=== PATIENT | female | born 1975 | race Caucasian/White ===

== ENCOUNTER 2020-08-01 19:49 | Emergency (ER) | payer OTHER, SELFPAY ==
--- NOTE | ~2020-08-01 | XR_ITS ---
EXAMINATION: XR chest 2V DATE: 08/01/2020 20:18 INDICATION: Chest pain TECHNIQUE: PA and lateral views of the chest were obtained. COMPARISON: Chest radiograph dated 03/19/2009 FINDINGS: The lungs remain clear with no focal airspace opacities, pulmonary edema, pleural effusion or pneumot horax. The cardiomediastinal silhouette is normal. Bilateral breast implants. C6-C7 anterior spinal f usion with plate and screw fixation. IMPRESSION: 1. No acute cardiopulmonary disease. Reviewed, dictated and finalized at location A.
[2020-08-01 19:51] VITALS: BP 126/89; PULSE 97; RESP 20; TEMP 36.5; O2SAT 99
--- NOTE | 2020-08-01 19:51 | ECG_ITS ---
Measurements Intervals [place] Rate: 95 P: 67 MN: 168 QRS: 28 QRSD: 85 T: 18 QT: 334 QTc: 421 Interpretive Statements SINUS RHYTHM NONSPECIFIC T-WAVE ABNORMALITY- INFERIOR LEADS BASELINE ARTIFACT- I, II, AVR, AVL BORDERLINE ECG Electronically Signed On 08-02-2020 5:45:37 CDT by Felix Navarro D.O.
--- NOTE | 2020-08-01 20:08 | ED.GENADULT ---
HPI - General Adult General Chief complaint: Chest Pain Stated complaint: chest pain Time Seen by Provider: 08/01/20 19:57 History of Present Illness HPI narrative: Patient 44-year-old female who presents the emergency department with chief complaint of chest pain. Patient reports that she was eating and suddenly had discomfort in the middle portion of her chest behind her sternum patient states it was squeezing and the patient states that she felt somewhat anxious on this. Patient reports he has history of panic but this felt different from her typical panic attack patient denies history of hypertension denies smoking denies history of cardiac disease. Patient states that pain is improved spontaneously and is not worsened by anything. Related Data Home Medications Medication Instructions Recorded Confirmed bupropion HCl mg PO 08/01/20 dextroamphetamine-amphetamine 08/01/20 estrogens-methyltestosterone tablet 08/01/20 lansoprazole 08/01/20 levothyroxine [Synthroid] 08/01/20 nystatin 08/01/20 spironolactone 08/01/20 tolterodine mg PO 08/01/20 Allergies Allergy/AdvReac Type Severity Reaction Status Date / Time meloxicam Allergy Severe CHEST Verified 08/01/20 20:00 PAIN, SOB, DOUBLE VISION morphine Allergy Severe Anaphylaxis Verified 08/01/20 20:00 Sulfa (Sulfonamide Allergy Mild Other Verified 08/01/20 20:00 Antibiotics) nifedipine Allergy Unknown Other Verified 08/01/20 20:00 nitrofurantoin Allergy Unknown Other Verified 08/01/20 20:00 terbutaline Allergy Unknown RASH DOWN Verified 08/01/20 20:00 BOTH LEGS NITRATE Allergy Unknown Other Uncoded 08/01/20 20:00 PROPOXYPHENE NAPSYLATE Allergy Unknown Other Uncoded 08/01/20 20:00 TERBUTALINE SULFATE Allergy Unknown Other Uncoded 08/01/20 20:00 Review of Systems Review of Systems: Narrative: A 10 system review of systems was completed on the patient and is negative except for what is stated in the HPI. Nursing and ancillary documentation was reviewed. PMFSH Comments Past medical history significant for interstitial cystitis generalized anxiety disorder panic attacks Surgical history the patient's had a hysterectomy tubal ligation. Social history the patient denies smoking Exam Narrative: Exam Narrative: GENERAL: Well-appearing, well-nourished, and in no acute distress. HEAD: Normocephalic, atraumatic. EYES: PERRLA and EOMI. ENT: Nares clear, no rhinorrhea or epistaxis. Mucous membranes moist. NECK: Supple. CHEST: Clear to auscultation. No respiratory distress. HEART: Regular rate and rhythm. No murmur heard. Normal peripheral pulses. ABDOMEN: Soft, nontender, nondistended, normal active bowel sounds. EXTREMITIES: Normal range of motion. No edema. SKIN: Warm, dry, no rash. NEURO: No focal deficits. Alert and oriented x3. PSYCH: Normal mood and affect. Course Course Emergency Course: Rhythm rate of [address] or ST depression Vital Signs Vital signs: Vital Signs Temperature 36.5 C 08/01/20 19:51 Pulse Rate 97 08/01/20 19:51 Respiratory Rate 20 08/01/20 19:51 Blood Pressure 126/89 08/01/20 19:51 Pulse Oximetry 99 08/01/20 19:51 Temperature 36.5 C 08/01/20 19:51 Pulse Rate 84 08/01/20 20:45 Respiratory Rate 18 08/01/20 20:29 Blood Pressure 120/78 08/01/20 20:31 Pulse Oximetry 99 08/01/20 20:45 Medical Decision Making Vital Signs Vital Signs: Vital Signs Temperature 36.5 C 08/01/20 19:51 Pulse Rate 97 08/01/20 19:51 Respiratory Rate 20 08/01/20 19:51 Blood Pressure 126/89 08/01/20 19:51 Pulse Oximetry 99 08/01/20 19:51 Temperature 36.5 C 08/01/20 19:51 Pulse Rate 84 08/01/20 20:45 Respiratory Rate 18 08/01/20 20:29 Blood Pressure 120/78 08/01/20 20:31 Pulse Oximetry 99 08/01/20 20:45 Lab Data Result diagrams: 08/01/20 20:02 08/01/20 20:02 Labs: Lab Results 08/01/20 08/01/20 08/01/20 Range
[2020-08-01 20:10] LABS: Basophils Absolute Auto 0.1 K/mm3 (0.0-0.1); Basophils Percent Auto 0.9 % (0.2-1.2); Eosinophils Absolute Auto 0.1 K/mm3 (0-0.3); Eosinophils Percent Auto 1.7 % (0-4.4); Hematocrit 43.4 % (37.0-47.0); Hemoglobin 13.9 g/dL (12.0-15.0); Immature Granulocyte Absolute 0.04 K/mm3 (0.00-0.031); Immature Granulocyte Percent A 0.5 % (0-0.5); Lymphocytes Absolute Auto 2.52 K/mm3 (0.9-3.2); Lymphocytes Percent Auto 31.2 % (18.3-44.2); Mean Corpuscular Hemoglobin 29.4 pg (26-34); Mean Corpuscular Volume 91.9 fl (80-100); Mean Platelet Volume 9.5 fl (7.4-10.4); Monocytes Absolute Auto 0.6 K/mm3 (0.1-0.6); Monocytes Percent Auto 6.9 % (2.6-8.5); Neutrophils Absolute Auto 4.7 K/mm3 (1.3-6.7); Neutrophils Percent Auto 58.8 % (45.5-73.1); Platelet Count Result 280 k/mm3 (150-375); Red Blood Count 4.72 M/mm3 (4.2-5.4); Red Cell Distribution Width 13.2 % (11.5-14.5); White Blood Count 8.1 K/mm3 (4.5-10.0)
[2020-08-01] MEDS: ASPIRIN 81 MG CHEWABLE TABLET 324 MG PO (20:10)
--- NOTE | 2020-08-01 20:11 | PC.NURSE ---
Patient taken to Xray via stretcher.
[2020-08-01 20:20] LABS: Anion Gap 11 mmol/L (8-16); Blood Urea Nitrogen 15 mg/dL (7-17); Calcium 9.3 mg/dL (8.4-10.2); Carbon Dioxide 22 mmol/L (22-30); Chloride 108 mmol/L (98-107); Estimated CRCL calculation 53 ml/min; Estimated Glomerular Filt Rate 60; Glucose 100 mg/dL (65-105); Potassium 3.7 mmol/L (3.4-5.0); Sodium 141 mmol/L (137-145)
[2020-08-01 20:23] LABS: Prothrombin Time 13.4 Seconds (11.1-14.7)
[2020-08-01 20:24] LABS: Partial Thromboplastin Time 26.1 SECONDS (22.3-36.8)
[2020-08-01 20:29] VITALS: PULSE 91; RESP 18; O2SAT 98
[2020-08-01 20:30] VITALS: PULSE 91; O2SAT 97
[2020-08-01 20:31] VITALS: BP 120/78; PULSE 93; O2SAT 97
[2020-08-01 20:31] LABS: Troponin I < 0.012 ng/mL (0.000-0.034)
[2020-08-01 20:32] LABS: Alanine Aminotransferase 16 U/L (4-35); Albumin Level 4.6 g/dL (3.5-5.1); Alkaline Phosphatase 61 U/L (38-126); Aspartate Amino Transferase 31 U/L (14-36); Bilirubin,Total 0.4 mg/dL (0.2-1.3); Lipase 123 U/L (23-300)
[2020-08-01 20:45] VITALS: PULSE 84; O2SAT 99
[2020-08-01 21:11] VITALS: BP 114/75; PULSE 83; RESP 20; TEMP 36.6; O2SAT 98
== END 2020-08-01 21:13 | disposition home or self-care (01) ==
PROVIDERS: Emergency Medicine; Emergency Provider Emergency Medicine; PCP Internal Medicine
DX: R07.89 Other chest pain (principal)
CPT/HCPCS: 36415; 71046; 80048; 80076; 83690; 84484; 85025; 85610; 85730; 93005; 99284; A9270

== ENCOUNTER 2021-02-22 10:29 | Emergency (ER) | payer OTHER, SELFPAY ==
[2021-02-22 10:48] VITALS: BP 102/67; PULSE 84; RESP 16; TEMP 36.3; O2SAT 100
--- NOTE | 2021-02-22 11:49 | ED.URI ---
HPI - URI/Sore Throat General Chief Complaint: Upper Respiratory Infection Stated Complaint: Sore Throat Time Seen by Provider: 02/22/21 11:49 Source: patient, RN notes reviewed and old records reviewed Mode of arrival: ambulatory Limitations: no limitations History of Present Illness HPI Narrative: 45-year-old female who presents [facility] with complaints of sinus congestion, sinus drainage, sore throat discomfort which has increased, headache and ear discomfort. Patient states she was seen last Sunday at other urgent care and strep was negative at that time and follow-up culture was also negative, she was given antibiotics which she started on Sunday. Patient states that her throat feels swollen and is more painful and increased pain with swallowing.Patient denies any fevers chills or sweats,no body aches or any acute cough, right ear feels painful also Patient states that she had COVID April of 2020 and has had COVID and influenza vaccines. MD elicited complaint: sore throat, rhinorrhea, nasal congestion and other (ear pain and itching) Related Data Home Medications Medication Instructions Recorded Confirmed bupropion HCl 300 mg PO DIRECTED 08/01/20 02/22/21 dextroamphetamine-amphetamine 5 mg PO DIRECTED 08/01/20 02/22/21 estrogens-methyltestosterone 1 tablet PO DAILY 08/01/20 02/22/21 lansoprazole 30 mg PO DAILY 08/01/20 02/22/21 levothyroxine [Synthroid] 125 mcg PO DAILY 08/01/20 02/22/21 spironolactone 100 mg PO DAILY 08/01/20 02/22/21 tolterodine 4 mg PO DIRECTED 08/01/20 02/22/21 Allergies Allergy/AdvReac Type Severity Reaction Status Date / Time meloxicam Allergy Severe CHEST Verified 02/22/21 10:39 PAIN, SOB, DOUBLE VISION morphine Allergy Severe Anaphylaxis Verified 02/22/21 10:39 Sulfa (Sulfonamide Allergy Mild Other Verified 02/22/21 10:39 Antibiotics) nifedipine Allergy Unknown Other Verified 02/22/21 10:39 nitrofurantoin Allergy Unknown Other Verified 02/22/21 10:39 terbutaline Allergy Unknown RASH DOWN Verified 02/22/21 10:39 BOTH LEGS NITRATE Allergy Unknown Other Uncoded 02/22/21 10:39 PROPOXYPHENE NAPSYLATE Allergy Unknown Other Uncoded 02/22/21 10:39 TERBUTALINE SULFATE Allergy Unknown Other Uncoded 02/22/21 10:39 Review of Systems Review of Systems: CONSTITUTIONAL: Denies fever, chills, or sweats. EYES: Denies visual changes, redness, or discharge. ENT: Positive rhinorrhea, congestion, sore throat, right otalgia. CARDIOVASCULAR: Denies chest pain, palpitations, or edema. RESPIRATORY: Denies cough or dyspnea. GASTROINTESTINAL: Denies abdominal pain, nausea, vomiting, or diarrhea. GENITOURINARY: Denies dysuria or hematuria. SKIN: Denies rash or itching. MUSCULOSKELETAL: Denies back pain, joint pain, or myalgia. NEUROLOGIC: Denies headache, numbness, or weakness. PSYCHIATRIC Positive history of anxiety or depression. All systems reviewed & are unremarkable except as noted in HPI and below PMFSH Past Medical History Medical History (Updated 02/22/21 @ 23:59 by Tana Fink NP) ADD (attention deficit disorder) Anxiety and depression GERD (gastroesophageal reflux disease) Hypothyroidism IBS (irritable bowel syndrome) Ulnar nerve entrapment Surgical History Surgical History (Updated 02/22/21 @ 23:56 by Tana Fink NP) H/O cervical spine surgery H/O dilation and curettage H/O tubal ligation H/O: hysterectomy History of nasal surgery Hx of breast augmentation Family History Family History (Updated 02/22/21 @ 23:57 by Tana Fink NP) Mother Rheumatoid arthritis Social History Social History (Updated 02/22/21 @ 23:56 by Tana Fink NP) Smoking status: Never smoker Alcohol intake: current Alcohol use details: social Substance use: never Living arrangements: with family Gender identity (if verbalized by the patient): Female Comments At time of signature, agree with nursing past medical, surgical, social and
== END 2021-02-22 12:15 | disposition home or self-care (01) ==
PROVIDERS: Emergency Provider Registered Nurse; PCP Internal Medicine
DX: J06.9 Acute upper respiratory infection, unspecified (principal); J02.9 Acute pharyngitis, unspecified; K21.9 Gastro-esophageal reflux disease without esophagitis; E03.9 Hypothyroidism, unspecified; F41.9 Anxiety disorder, unspecified; F32.A Depression, unspecified; F90.9 Attention-deficit hyperactivity disorder, unspecified type
CPT/HCPCS: 99213; G0463

== ENCOUNTER → 2021-10-28 14:27 | Outpatient (CLI) | payer OTHER, SELFPAY ==
--- NOTE | ~2021-10-28 | XR_ITS ---
EXAMINATION: XR chest 2V DATE: 10/28/2021 14:40 INDICATION: Other chest pain. TECHNIQUE: Frontal and lateral views of the chest were obtained. COMPARISON: Chest 2 views 08/01/2020 FINDINGS: The chest demonstrates clear lungs without pneumonia, pleural effusion, or pneumothorax. Th e heart size is normal. There are changes of anterior fusion procedure in cervical spine. IMPRESSION: 1. No acute cardiopulmonary disease. Reviewed, dictated and finalized at location A.
== END ==
PROVIDERS: PCP Internal Medicine; Visit Provider Internal Medicine
DX: R07.89 Other chest pain (principal)
CPT/HCPCS: 71046

== ENCOUNTER 2021-12-10 22:14 | Emergency (ER) | payer OTHER, SELFPAY ==
[2021-12-10 22:25] VITALS: BP 119/73; PULSE 92; RESP 14; TEMP 36.6; O2SAT 98
[2021-12-11 01:48] VITALS: BP 106/67; PULSE 84; RESP 18; TEMP 36.4; O2SAT 99
[2021-12-11] MEDS: KETOROLAC 30 MG/ML VIAL (*BKC) IV PUSH (02:25)
[2021-12-11] MEDS: diazePAM INJ (*CRX) 10 MG/2 ML SYRINGE 2 MG IV PUSH (02:25)
[2021-12-11] MEDS: methylPREDNISolone SOD SUCC 125 MG VIAL IV PUSH (02:25)
--- NOTE | 2021-12-11 02:51 | ED.BACK ---
HPI - Back Pain/Injury General Chief Complaint: Back Pain/Injury <ZENIA Levi Last Filed: 12/11/21 03:27> Stated Complaint: back pain <ZENIA Levi Last Filed: 12/11/21 03:27> Time Seen by Provider: 12/11/21 01:50 <ZENIA Levi Last Filed: 12/11/21 03:27> Source: patient <ZENIA Levi Last Filed: 12/11/21 03:27> Mode of arrival: EMS <ZENIA Levi Last Filed: 12/11/21 03:27> Limitations: no limitations <ZENIA Levi Last Filed: 12/11/21 03:27> History of Present Illness HPI Narrative: Patient is a 46-year-old female who presents to the ED via EMS with report of right lower back pain. Patient reports she picked up her granddaughter on Sunday evening and reportedly felt a pop in her right lower back. She has had pain since then. She states the pain improved somewhat today and she rested most of the day on the couch. She then developed significant pain tonight when she tried to move and get up off the couch. She states she was unable to walk or move whatsoever, so EMS was called. Patient denies any abdominal pain, nausea, vomiting, numbness, tingling, saddle anesthesia, weakness of BLE, incontinence of bowel or bladder. <ZENIA Levi Last Filed: 12/11/21 03:27> Related Data Home Medications: Home Medications Medication Instructions Recorded Confirmed bupropion HCl 300 mg 24 hr tablet, 300 mg PO DIRECTED 08/01/20 02/22/21 extended release dextroamphetamine-amphetamine 5 mg 5 mg PO DIRECTED 08/01/20 02/22/21 tablet esterified 1 tablet PO DAILY 08/01/20 02/22/21 estrogens-methyltestosterone 0.625 mg-1.25 mg tablet lansoprazole 30 mg capsule,delayed 30 mg PO DAILY 08/01/20 02/22/21 release levothyroxine 125 mcg tablet 125 mcg PO DAILY 08/01/20 02/22/21 (Synthroid) spironolactone 100 mg tablet 100 mg PO DAILY 08/01/20 02/22/21 tolterodine 4 mg capsule,extended 4 mg PO DIRECTED 08/01/20 02/22/21 release 24 hr <Yuliana Villa PA-C - Last Filed: 12/11/21 03:27> Allergies/Adverse Reactions: Allergies Allergy/AdvReac Type Severity Reaction Status Date / Time meloxicam Allergy Severe CHEST Verified 12/11/21 01:57 PAIN, SOB, DOUBLE VISION morphine Allergy Severe Anaphylaxis Verified 12/11/21 01:57 Sulfa (Sulfonamide Allergy Mild Other Verified 12/11/21 01:57 Antibiotics) nifedipine Allergy Unknown Other Verified 12/11/21 01:57 nitrofurantoin Allergy Unknown Other Verified 12/11/21 01:57 terbutaline Allergy Unknown RASH DOWN Verified 12/11/21 01:57 BOTH LEGS NITRATE Allergy Unknown Other Uncoded 02/22/21 10:39 PROPOXYPHENE NAPSYLATE Allergy Unknown Other Uncoded 02/22/21 10:39 TERBUTALINE SULFATE Allergy Unknown Other Uncoded 02/22/21 10:39 <Yuliana Villa PA-C - Last Filed: 12/11/21 03:27> Review of Systems Review of Systems: CONSTITUTIONAL: Denies fever, chills, or sweats. CARDIOVASCULAR: Denies chest pain. RESPIRATORY: Denies cough or dyspnea. GASTROINTESTINAL: Denies abdominal pain, nausea, vomiting, incontinence. GENITOURINARY: Denies dysuria, incontinence, or hematuria. MUSCULOSKELETAL: Reports R lower back pain. NEUROLOGIC: Denies saddle anesthesia, tingling, numbness, or weakness. <Yuliana Villa PA-C - Last Filed: 12/11/21 03:27> All systems reviewed & are unremarkable except as noted in HPI and below <Yuliana Villa PA-C - Last Filed: 12/11/21 03:27> PMFSH Past Medical History Medical History: Medical History ADD (attention deficit disorder) Anxiety and depression GERD (gastroesophageal reflux disease) Hypothyroidism IBS (irritable bowel syndrome) Ulnar nerve entrapment <Yuliana Villa PA-C - Last Filed: 12/11/21 03:27> Surgical History Surgical History: Surgical History (Reviewed
== END 2021-12-11 03:25 | disposition home or self-care (01) ==
PROVIDERS: Emergency Provider Emergency Medicine; PCP Internal Medicine
DX: S39.012A Strain of muscle, fascia and tendon of lower back, initial encounter (principal); E03.9 Hypothyroidism, unspecified; K21.9 Gastro-esophageal reflux disease without esophagitis; K58.9 Irritable bowel syndrome, unspecified; F98.8 Other specified behavioral and emotional disorders with onset usually occurring in childhood and adolescence; F41.9 Anxiety disorder, unspecified; F32.A Depression, unspecified; Z90.710 Acquired absence of both cervix and uterus; X50.0XXA Overexertion from strenuous movement or load, initial encounter
CPT/HCPCS: 96374; 96375; 99284; J1885; J2930; J3360

== ENCOUNTER → 2023-03-10 11:23 | Outpatient (CLI) | payer OTHER, SELFPAY ==
--- NOTE | ~2023-03-10 | XR_ITS ---
XR tibia fibula LT 2V DATE: 03/10/2023 11:45 INDICATION: Left leg pain TECHNIQUE: AP and lateral views COMPARISON: None FINDINGS: No fracture or dislocation, periosteal reaction or bone destruction. Normal alignment of th e knee and ankle joints. IMPRESSION: Negative Reviewed, dictated and finalized at location A. 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
== END ==
PROVIDERS: PCP Internal Medicine; Visit Provider Internal Medicine
DX: M79.605 Pain in left leg (principal)
CPT/HCPCS: 73590

== ENCOUNTER → 2023-03-15 10:41 | Outpatient (CLI) | payer OTHER, SELFPAY ==
--- NOTE | ~2023-03-15 | XR_ITS ---
Right elbow Technique: AP, oblique, and lateral views were obtained. Clinical History: Pain Findings: No acute fracture or dislocation is seen. Osseous alignment is anatomic. Joint spaces are p reserved. There is no displacement of the fat pads, and soft tissues are unremarkable. Impression: Unremarkable radiographs. Reviewed, dictated and finalized at location . [employer] Impression: Unremarkable radiographs.
== END ==
PROVIDERS: PCP Internal Medicine; Visit Provider Internal Medicine
DX: M25.521 Pain in right elbow (principal)
CPT/HCPCS: 73080

== ENCOUNTER 2023-05-10 09:59 | Outpatient (CLI) | payer OTHER, SELFPAY ==
--- NOTE | ~2023-05-10 | MM_ITS ---
EXAMINATION: MM scrn leighann implant BI w gilles HISTORY: Screening mammogram TECHNIQUE: Craniocaudal and mediolateral oblique 3-D tomosynthesis images with implant displacement a nd synthetic 2-D images were generated. Craniocaudal and mediolateral oblique views of the breasts wi thout implant displacement were obtained using full field digital mammography. CAD analysis was submi tted and interpreted. COMPARISON: 08/17/2012 BREAST PARENCHYMAL COMPOSITION: Not dense: There are scattered areas of fibroglandular density. FINDINGS: There are bilateral subglandular breast implants. There is no evidence of suspicious mass, calcification, or architectural distortion to suggest malignancy in either breast. There has been no suspicious interval change. IMPRESSION: 1. No mammographic evidence of malignancy. 2. Recommend routine screening mammography in one year. BI-RADS Category 1: Negative Reviewed, dictated and finalized at location A.
== END 2023-05-10 10:00 ==
LOC: MICIMG 09:59
PROVIDERS: PCP Internal Medicine; Visit Provider Internal Medicine
DX: Z12.31 Encounter for screening mammogram for malignant neoplasm of breast (principal)
CPT/HCPCS: 77063; 77067